=== PATIENT | male | born 1990 | race African-American/Black ===

== ENCOUNTER 2020-02-07 15:00 | Emergency (ER) | payer OTHER, SELFPAY ==
[~2020-02-07] VITALS: Ht 177.8 cm; Wt 86.2 kg
[2020-02-07 15:07] VITALS: BP 141/74
--- NOTE | 2020-02-07 15:17 | NUR ---
29 Y/O MALE C/O FEVER AND CHILLS SINCE LAST NIGHT WITH COUGH AND SORE THROAT. PATIENT DENIES ANY SOB, NO ACUTE DISTRESS NOTED AT THIS TIME. VSS. NO PMH NKDA
[2020-02-07] MEDS ORDERED: IBUPROFEN 800 MG TAB PO ONE (15:20)
--- NOTE | 2020-02-07 16:42 | NUR ---
Covid +-- critical value received from lab, ALEX King made aware
[2020-02-07 17:03] VITALS: BP 141/74
--- NOTE | 2020-02-07 17:03 | NUR ---
Patient discharged with v/s stable. Written and verbal after care instructions given and explained. Patient alert, oriented and verbalized understanding of instructions. Ambulatory with steady gait. All questions addressed prior to discharge. ID band removed. Patient advised to follow up with PMD. Rx of PROMETHAZINE, TYLENOL given. Patient educated on indication of medication including possible reaction and side effects. Opportunity to ask questions provided and answered.
--- NOTE | 2020-02-09 15:56 | NUR ---
+ covid result received from lab. Copy given to Infection control
== END 2020-02-07 17:05 | disposition home or self-care (01) ==
LOC: MED 15:00
DX: U07.1 COVID-19 (principal); R50.9 Fever, unspecified
CPT/HCPCS: 87426; 87804; 99283; U0003